=== PATIENT | male | born 1940 | race Caucasian/White ===

== ENCOUNTER 2018-04-16 19:36 | Emergency (ER) | payer OTHER, MEDICARE ==
[~2018-04-16] VITALS: Ht 175.3 cm; Wt 65.9 kg
[2018-04-16 19:40] VITALS: Ht 175.3 cm; Wt 65.9 kg
[2018-04-16] MEDS ORDERED: BAYER CHEWABLE81 MG PO (19:41)
[2018-04-16] MEDS ORDERED: ZOCOR80 MG PO (19:42)
[2018-04-16] MEDS ORDERED: NIFEDIPINE60 MG/BOTT PO (19:42)
[2018-04-16] MEDS ORDERED: OMEPRAZOLE20 M1 PO (19:42)
[2018-04-16] MEDS ORDERED: PRINIVIL20 MG PO (19:42)
[2018-04-16] MEDS ORDERED: TENORMIN50 MG PO (19:43)
[2018-04-16 21:03] LABS: BASOPHILS 0.1 % (0-2); EOSINOPHILS 0.9 % (0-7); HEMATOCRIT 45.7 % (42.0-54.0); HEMOGLOBIN 15.5 g/dL (13.5-17.5); IMMATURE GRANULOCYTES 0.3 % (0-5); LYMPHOCYTES 9.6 % (15-50); MCH 30.9 pg (26.0-34.0); MCHC 33.9 g/dL (31.0-37.0); MCV 91.2 fL (80.0-100.0); MEAN PLATELET VOLUME 10.4 fL (7.4-10.4); MONOCYTES 10.2 % (2-11); NEUTROPHILS 78.9 % (40-80); PLATELET COUNT 290 10x3/uL (130-400); RBC 5.01 10x6/uL (4.20-6.10); RDW 14.2 % (11.5-14.5); WBC 11.6 10x3/uL (4.8-10.8)
[2018-04-16] MEDS ORDERED: DOXYCYCLINE HY100 M2 PO (21:20)
[2018-04-16] MEDS ORDERED: TORADOL10 MG PO (21:20)
[2018-04-16 21:29] LABS: ALKALINE PHOSPHATASE 60 U/L (46-116); ALT (SGPT) 16 U/L (10-68); CALC OSMOLALITY 278 mosm/kg (275-300); CALCIUM 9.6 mg/dL (8.5-10.1); CARBON DIOXIDE 31.3 mmol/L (21.0-32.0); CHLORIDE - SERUM 101 mmol/L (98-107); CREATININE - SERUM 0.9 mg/dL (0.6-1.3); GLUCOSE 77 mg/dL (74-106); POTASSIUM - SERUM 3.7 mmol/L (3.5-5.1); PROTEIN - SERUM 8.1 g/dL (6.4-8.2); SODIUM 139 mmol/L (136-145); UREA NITROGEN 18 mg/dL (7-18); eGFR NON AFRICAN AMERICAN 87 mL/min (90-120)
[2018-04-16] MEDS ORDERED: KENALOG 0.1 % 115 GM TOPICAL (22:07)
[2018-04-16 22:36] VITALS: BP 144/78
== END 2018-04-16 22:36 | disposition home or self-care (01) ==
LOC: D.ER 19:36
PROVIDERS: Family Medicine
DX: L02.211 Cutaneous abscess of abdominal wall (principal); L25.9 Unspecified contact dermatitis, unspecified cause; I10 Essential (primary) hypertension

== ENCOUNTER 2018-04-22 11:04 | Emergency (ER) | payer OTHER, MEDICARE ==
[~2018-04-22] VITALS: Ht 175.3 cm; Wt 65.8 kg
[~2018-04-22 11:04] MED LIST: BAYER CHEWABLE81 MG PO; DOXYCYCLINE HY100 M2 PO; KENALOG 0.1 % 115 GM TOPICAL; NIFEDIPINE60 MG/BOTT PO; OMEPRAZOLE20 M1 PO; PRINIVIL20 MG PO; TENORMIN50 MG PO; TORADOL10 MG PO; ZOCOR80 MG PO
[2018-04-22 11:08] VITALS: BP 140/67; Ht 175.3 cm; Wt 65.8 kg
== END 2018-04-22 12:21 | disposition home or self-care (01) ==
LOC: D.ER 11:04
DX: L02.211 Cutaneous abscess of abdominal wall (principal)

== ENCOUNTER 2018-06-23 09:50 | Emergency (ER) | payer OTHER ==
[~2018-06-23] VITALS: Ht 175.3 cm; Wt 64.1 kg
[2018-06-23 09:54] VITALS: Ht 175.3 cm; Wt 64.1 kg
[2018-06-23 10:22] LABS: BASOPHILS 0.3 % (0-2); EOSINOPHILS 2.7 % (0-7); HEMATOCRIT 43.3 % (42.0-54.0); HEMOGLOBIN 14.7 g/dL (13.5-17.5); IMMATURE GRANULOCYTES 0.2 % (0-5); LYMPHOCYTES 9.4 % (15-50); MCH 30.7 pg (26.0-34.0); MCHC 33.9 g/dL (31.0-37.0); MCV 90.4 fL (80.0-100.0); MEAN PLATELET VOLUME 10.5 fL (7.4-10.4); MONOCYTES 8.2 % (2-11); NEUTROPHILS 79.2 % (40-80); PLATELET COUNT 297 10x3/uL (130-400); RBC 4.79 10x6/uL (4.20-6.10); RDW 14.3 % (11.5-14.5); WBC 10.6 10x3/uL (4.8-10.8)
[2018-06-23 10:43] LABS: ALBUMIN 3.6 g/dL (3.4-5.0); ALKALINE PHOSPHATASE 58 U/L (46-116); ALT (SGPT) 15 U/L (10-68); BILIRUBIN - TOTAL 0.82 mg/dL (0.2-1.3); CALC OSMOLALITY 278 mosm/kg (275-300); CALCIUM 8.9 mg/dL (8.5-10.1); CARBON DIOXIDE 27.2 mmol/L (21.0-32.0); CHLORIDE - SERUM 102 mmol/L (98-107); CREATININE - SERUM 0.8 mg/dL (0.6-1.3); GLUCOSE 106 mg/dL (74-106); POTASSIUM - SERUM 3.9 mmol/L (3.5-5.1); PROTEIN - SERUM 7.6 g/dL (6.4-8.2); SODIUM 140 mmol/L (136-145); UREA NITROGEN 13 mg/dL (7-18); eGFR NON AFRICAN AMERICAN > 90 mL/min (90-120)
[2018-06-23 11:07] VITALS: BP 138/69
== END 2018-06-23 11:08 | disposition home or self-care (01) ==
LOC: D.ER 09:50
PROVIDERS: Family Medicine
DX: K92.1 Melena (principal); K59.00 Constipation, unspecified; K64.9 Unspecified hemorrhoids; I10 Essential (primary) hypertension